=== PATIENT | male | born 1980 | race Asian ===

== ENCOUNTER 2025-01-27 06:11 | Day surgery (SDC) | payer OTHER, SELFPAY ==
[2025-01-27 12:06] VITALS: BMI 30.8
[2025-01-27 12:08] VITALS: BMI 30.8
[2025-01-27 12:09] VITALS: BP 128/88
[2025-01-27 12:14] LABS: Glucose - Point of Care 84 mg/dl (70-99)
[2025-01-27] MEDS: NORMOSOL-R/PLASMALYTE-A 1000 IV (12:23)
[2025-01-27 14:34] VITALS: BP 117/63
[2025-01-27 14:45] VITALS: BP 132/96
--- NOTE | 2025-01-31 08:27 | OR.RPT ---
Operative Report
Operative Report
Patient name: Ramila Chan
Date of : 1980

Date of operation: 01/27/2025
Preoperative diagnosis: Severe SUSHANT, CPAP intolerance
Postoperative diagnosis: Severe SUSHANT, CPAP intolerance
Operation/procedures performed: Drug-induced sleep endoscopy
Surgeon: Rl Turner DO
Anesthesia: General, propofol sedation
Anesthesiologist: See anesthesia report in [facility]
Surgical Indications: Known the patient then emerged from her stroke and fall induced nap and was taken to the PACU in stable condition. This is a 44-year-old man with severe obstructive sleep apnea and CPAP intolerance who is interested in CPAP
alternatives. We discussed the risks benefits and alternatives to a drug-induced sleep endoscopy for more thorough evaluation of the airway while sleeping. He provided informed written consent and is here today for a drug-induced sleep endoscopy.
Details of Procedure: The patient was met in the preoperative holding area where informed written consent was reviewed and all questions were answered. He was taken back to the GI suite on the stretcher and positioned in the reclined position. A
surgical timeout was performed confirming the necessary perioperative information
A propofol bolus was then given followed by a propofol titration to induce simulated sleep. See anesthesia report and [facility] for medication details. Once sedation was elicited, a 5 mm and bronchoscope was passed through the left nasal
cavity and positioned in choana to watch the velum followed by oropharynx, tongue base and epiglottis for characteristics of obstruction during his hypopneas and apneas.
V- primarily anterior-posterior collapse at the velum with a substantial lateral wall collapse component. No singular complete circumferential collapse visualized
O- primarily anterior-posterior collapse of the oropharynx mixed with a substantial amount of lateral wall collapse.
T-not enlarged. No significant obstruction.
E- no retroflexion or inversion
The patient had several hypopneas and apneas with witnessing obstruction and the patterns described above. Oxygen carmen to approximately 85%. After adequate detail was recorded from the exam, this concluded the procedure. The patient emerged
safely from his propofol sedation and was taken to the PACU in stable condition.
Complications: None
Blood loss: None
Disposition: Stable to PACU followed by discharge to home
== END 2025-01-27 15:05 | disposition home or self-care (01) ==
LOC: SDS 06:11
PROVIDERS: ATTENDING PHYSICIAN Student in an Organized Health Care Education/Training Program
DX: G47.33 Obstructive sleep apnea (adult) (pediatric) (principal)
CPT/HCPCS: 42975; 82962